=== PATIENT | male | born 1995 | race Caucasian/White ===

== ENCOUNTER 2019-10-14 09:55 | Day surgery (SDC) | payer OTHER ==
[~2019-10-14] VITALS: Ht 172.7 cm; Wt 88.5 kg
[~2019-10-14 09:55] MED LIST: ACETAMINOPHEN325 M1
[2019-10-14] MEDS ORDERED: HYDROCODON-ACE1 EA10 PO (13:35)
[2019-10-14] MEDS ORDERED: DICLOFENAC SODI75 MG PO (13:35)
--- NOTE | 2019-10-15 07:53 | OR ---
[facility] [address] [facility] [place], [place] [address] Signed DATE OF OPERATION: 10/14/2019 SURGEON: Damon Colon MD PREOPERATIVE DIAGNOSIS: Metallic foreign body, right hand. POSTOPERATIVE DIAGNOSIS: Metallic foreign body, right hand. PROCEDURE PERFORMED: Removal of foreign body, right hand. AIRCRAFT MECHANIC: None. ANESTHESIA: Wrist block. TOURNIQUET TIME: 22 minutes. BRIEF HISTORY: Cornelio is a 24-year-old boy, who was using a sledgehammer when a chunk of the sledgehammer head broke off entering his right index finger just dorsal to the MP joint. He had quite a bit of pain and felt like something was in there. Radiographs confirmed a metallic fragment of about 4 mm in length. This was dorsally located, did not appear to be in the joint, but it is very close. Risks and benefits of removal were discussed with him. He elected to proceed. DESCRIPTION OF PROCEDURE: Once consent was obtained, he was taken to the operating room after adequate anesthesia. He was placed on operating table, all downside pressure points were well padded. The fragment was located using the C-arm and 1 cm incision was made overlying this carried through skin and subcutaneous tissue. It was not lying between the skin and the tendon. We then again localized using the C-arm and split the tendon longitudinally. The metallic foreign body was found in the extensor tendon just distal proximal phalanx. He was fished out with a mosquito forceps and passed off. Repeat radiographs showed complete excision of the fragment. The wound was copiously irrigated with antibiotic solution. The tendon was closed with a single 4-0 Supramid stitch and the Electronically Signed By: DAMON COLON MD 10/15/19 0753 PATIENT NAME: CORNELIO MCGHEE OPERATIVE REPORT DATE OF : [birth year] REPORT #: [id number] PHYSICIAN: DAMON COLON MD PCP: NO PRIMARY CARE PHYSICIAN REPORT IS CONFIDENTIAL AND NOT TO BE RELEASED WITHOUT AUTHORIZATION [facility] [address] [place] [id number] Signed skin was closed with 3-0 nylon. The wound was dressed with bacitracin, Xeroform, and gauze. He tolerated the procedure well. All sponge, needle, and instrument counts were correct. Damon Colon MD BA/MODL /[id number] Copies: ~ Electronically Signed By: DAMON COLON MD 10/15/19 0753 PATIENT NAME: CORNELIO MCGHEE OPERATIVE REPORT DATE OF : [birth year] REPORT #: [id number] PHYSICIAN: DAMON COLON MD PCP: NO PRIMARY CARE PHYSICIAN REPORT IS CONFIDENTIAL AND NOT TO BE RELEASED WITHOUT AUTHORIZATION
== END 2019-10-14 14:30 | disposition home or self-care (01) ==
LOC: DS 09:55
PROVIDERS: Specialist
PROC: 0LC70ZZ Extirpation of Matter from Right Hand Tendon, Open Approach (ICD-10-PCS; principal; 2019-10-14 12:00)
DX: S60.450A Superficial foreign body of right index finger, initial encounter (principal); F17.220 Nicotine dependence, chewing tobacco, uncomplicated; W45.8XXA Other foreign body or object entering through skin, initial encounter
CPT/HCPCS: 01830; 64415; 76000; 76942; J0690; J1100; J1885; J2001; J2250; J2405; J2704; J2765; J2795; J3010; J7121